=== PATIENT | female | born 1995 | race Two or more races ===

== ENCOUNTER 2023-06-09 21:23 | Emergency (ER) | payer SELFPAY ==
[~2023-06-09] VITALS: Ht 165.1 cm; Wt 79.3 kg
[2023-06-10] MEDS ORDERED: MUPI2OIN2 EX (03:52)
[2023-06-10] MEDS ORDERED: CLIN1CAP70 PO (03:52)
[2023-06-10] MEDS ORDERED: IBUP1TAB5 PO (03:52)
[2023-06-10] MEDS: HYDROcodone-ACET 5/325MG TAB PO ONE (04:53)
[2023-06-10] MEDS: cefTRIAXone SOD 1,000 MG VL IM ONE (04:54)
[2023-06-10 05:30] VITALS: BP 120/64; PULSE 99; RESP 18; TEMP 97.8; O2SAT 99
== END 2023-06-10 05:31 | disposition home or self-care (01) ==
LOC: ER 21:23
DX: T81.30XD Disruption of wound, unspecified, subsequent encounter (principal); Z48.01 Encounter for change or removal of surgical wound dressing; Y92.89 Other specified places as the place of occurrence of the external cause
CPT/HCPCS: 96372; 99283; J0696

== ENCOUNTER 2024-01-31 18:53 | Observation (INO) | payer MEDICAID ==
[~2024-01-31] VITALS: Ht 165.1 cm; Wt 90.7 kg
[~2024-01-31 18:53] MED LIST: CLIN1CAP70 PO; IBUP1TAB5 PO; MUPI2OIN2 EX
--- NOTE | 2024-01-31 19:36 | DVH ---
BIOPHYSICAL PROFILE HISTORY: DECREASED MOVEMENT TECHNIQUE: Multiple transabdominal real-time grayscale sonographic images through the gravid uterus of the fetus with duplex Doppler color flow and M-mode spectral analysis FINDINGS: BIOPHYSICAL PROFILE: breathing score: 2 movement score: 2 tone score: 2 Quantitative NICK score: 2 (NICK: 15.2 Cm.) Total score: 8 The cervix is not well visualized Single live fetus in cephalic presentation. heart rate 150 beats per minute. Anterior placenta without previa or abruption IMPRESSION: Biophysical profile score: 8
--- NOTE | 2024-02-01 07:57 | DVHDS2 ---
Physician Discharge Progress N Final Diagnosis: jan movement resolved Operations or Procedures: Operations or Procedures nst,sono Condition on Discharge: Good Disposition: Home Discharge Instructions: Diet: Regular Activity: No Restrictions, As Tolerated Medications: na Follow Up Care: Specialist: 3d Discharge Statement: "Patient was advised to return to the ER or call 911 if any headaches, dizziness, shortness of breath, chest pain, abdominal pain, bleeding, fevers, or worsening of medical condition. Patient was counseled about treatment plan, medications, possible side effects, patientverbalized understanding. All questions were answered to the best of my ability. This discharge took greater then 30 minutes in planning, reviewing documenta tion, counseling the patient, and discussing with other team members." JONNIE ROBLES DO Feb 01, 2024 07:57
== END 2024-01-31 20:05 | disposition home or self-care (01) ==
LOC: LDRP 18:53
PROVIDERS: ADMIT Obstetrics & Gynecology; ATTEND Obstetrics & Gynecology
DX: O36.8130 Decreased fetal movements, third trimester, not applicable or unspecified (principal); Z98.890 Other specified postprocedural states; Z79.899 Other long term (current) drug therapy; Z3A.33 33 weeks gestation of pregnancy
CPT/HCPCS: 59025; 76818; 81002; 94760; G0378